=== PATIENT | male | born 1990 | race Caucasian/White ===

== ENCOUNTER 2016-05-22 04:18 | Emergency (ER) ==
[2016-05-22 04:53] VITALS: BP 105/53; TEMP 98; BMI 23.6
[2016-05-22] MEDS: SODIUM CHLORIDE 1,000 ML IV STA (05:33)
[2016-05-22] MEDS: ZOFRAN 4 MG/2 ML IVP STA ×2 (05:33→09:07)
[2016-05-22 05:34] LABS: BASOPHILS % (AUTO) 0.8 % (0.0-3.0); EOSINOPHILS % (AUTO) 1.5 % (0.0-7.0); HEMOGLOBIN 9.2 g/dl (14.0-18.0); IMMATURE GRANULOCYTE % (AUTO) 0.8 % (0.0-5.0); LYMPHOCYTES # (AUTO) 0.2 K/uL (0.60-3.4); MEAN CORPUSCULAR HEMOGLOBIN 31.1 pg (27.0-31.0); MEAN CORPUSCULAR HGB CONC 34.1 (31.8-35.4); MEAN CORPUSCULAR VOLUME 91.2 fl (80.0-94.0); MONOCYTES # (AUTO) 0.2 K/uL (0.4-2.0); MONOCYTES % (AUTO) 15.8 (0-10); NEUTROPHILS # (AUTO) 0.8 K/ul (2.0-6.9); NEUTROPHILS % (AUTO) 63.1; PLATELET COUNT 158 10^3/uL (140-440); RED BLOOD COUNT 2.96 10^6/ul (4.70-6.10)
[2016-05-22] MEDS: DILAUDID 1 MG/ML SYRINGE IVP STA ×2 (05:38→08:56)
[2016-05-22 05:42] LABS: WHITE BLOOD COUNT 1.33 K/ul (4.2-10.2)
[2016-05-22 05:53] LABS: MONO INTERNAL QC INTERNAL QC VALID
[2016-05-22 05:54] LABS: ALBUMIN 3.1 g/dL (3.4-5.0); ALBUMIN/GLOBULIN RATIO 1.24; ANION GAP 7.4; BILIRUBIN,TOTAL 0.39 mg/dL (0.00-1.20); BUN/CREATININE RATIO 11.76; CALCIUM 7.8 mg/dL (8.2-10.2); CREATININE 0.68 mg/dL (0.60-1.10); POTASSIUM 3.4 mmol/L (3.5-5.1); TOTAL PROTEIN 5.6 g/dL (6.4-8.2)
[2016-05-22 06:01] LABS: CREATINE KINASE 33 U/L
[2016-05-22 06:07] LABS: ERYTHROCYTE SEDIMENTATION RATE 9 mm/hr (0-15); ESR INTERNAL QC INTERNAL QC VALID
--- NOTE | 2016-05-22 06:49 | ED.PDOC ---
General Stated Complaint: im hurting--i was at [place] a few weeks ago Time Seen by Physician: 04:30 Mode of Arrival: Wheelchair Information Source: Patient, Family Exam Limitations: No limitations Nursing and Triage Documentation Reviewed and Agree: Yes <NADER KRAFT - Last Filed: 05/22/16 06:50> <BJ HARRINGTON JR - Last Filed: 05/22/16 20:06> ED Provider: Dr. BJ HARRINGTON JR (NADER KRAFT) (BJ HARRINGTON JR) Chief Complaint: Abdominal Pain GI Complaint Exam - Abdominal Pain Complaint/Exam Onset: Gradual Duration: several days Symptoms Are: Still present Timing: Constant Initial Severity: Mild Current Severity: Moderate Location of Pain: Diffuse Radiates To: Reports: Back Character: Reports: Dull, Aching, Cramping Aggravating: Reports: None Alleviating: Reports: None Associated Signs and Symptoms: Reports: Back pain, Decreased appetite, Nausea, Diarrhea. Denies: Diaphoresis, Fever, Cough, Chest pain, Dizziness, Constipation, Blood in stool, Dysuria, Urinary frequency, Decreased urine output , Discharge, Vomiting, Decreased activity Related History: Reports: Similar episode (was in [place] a few weeks ago) Abdominal Findings: Present: None Differential Diagnoses: Bowel Obstruction, Constipation, Pancreatitis, UTI Quality Indicator For Non-Traumatic Chest Pain/Syncope: EKG Performed <NADER KRAFT - Last Filed: 05/22/16 06:50> Review of Systems - Review Of Systems Constitutional: Reports: No symptoms Eyes: Reports: No symptoms Ears, Nose, Mouth, Throat: Reports: No symptoms Respiratory: Reports: No symptoms Cardiac: Reports: No symptoms GI: Reports: Abdominal pain, Nausea, Poor appetite, Poor fluid intake, Vomiting : Reports: No symptoms Musculoskeletal: Reports: No symptoms Skin: Reports: No symptoms Neurological: Reports: No symptoms Endocrine: Reports: No symptoms Hematologic/Lymphatic: Reports: No symptoms All Other Systems: Reviewed and Negative <NADER KRAFT - Last Filed: 05/22/16 06:50> Past Medical History - Past Medical History Endocrine: Reports: Unknown Cardiovascular: Reports: Unknown Respiratory: Reports: Unknown Hematological: Reports: Unknown Gastrointestinal: Reports: Unknown Genitourinary: Reports: Unknown Neuro/Psych: Reports: Unknown Musculoskeletal: Reports: Unknown Cancer: Reports: Unknown - Surgical History General Surgical History: Reports: Unknown - Family History Family History: Reports: Unknown - Social History Smoking Status: Never smoker Hx Substance Use: No Alcohol Screening: None Lives: With family - Immunizations Tetanus Shot up to Date: Yes <NADER KRAFT - Last Filed: 05/22/16 06:50> Physical Exam - Physical Exam Appearance: Thin Pain Distress: Moderate Eyes: PRIYANKA, EOMI, Conjunctiva clear ENT: Ears normal, Nose normal, Oropharynx normal Neck: Supple Respiratory: Airway patent Cardiovascular: RRR GI/: Soft, Nontender, No masses, Bowel sounds normal, No Organomegaly Musculoskeletal: Normal strength, ROM intact, No edema, No calf tenderness Skin: Warm, Dry, Normal color Neurological: Sensation intact, Motor intact, Reflexes intact, Cranial nerves intact, Alert, Oriented Psychiatric: Affect appropriate, Mood appropriate <NADER KRAFT - Last Filed: 05/22/16 06:50> Re-Evaluation - Re-Evaluation Time of Re-Evaluation: 07:22 (records from [facility] obtained called [facility]- offered [facility] records- will send inpatietn notes no dc sum [id number] [phone]) Status: Unchanged Appearance: Other Lungs: Other - Re-Evaluation Time of Re-Evaluation: 08:30 (DISC WITH DR SULLIVAN AT [facility] ACCEPT IF AGREES TO DECOMPRESSION RECC EMS DO NOT RECC OPIATES) Status: Unchanged Vital Signs Stable: Yes Appearance: Other Skin: Other (PALE) Neuro: Alert and Oriented X3 (FORCED PUSH OF SPEECH MAKES HIM DIFFICULT TO UNDERSTAND AND NEEDS FREQUENT REDIRECTION) CV: RRR Additional Comments: ABD SLIGHTLY DISTENDED AND TENDER FEW BS <BJ HARRINGTON JR - Last Filed: 05/22/16 20:06> Physician Notification - Case Discussed Physician Notified: dr harrington Time of Notification: 07:00 <NADER KRAFT - Last Filed: 05/22/16 06:50> - Case Discussed Physician Notified: DISC WITH DR MURILLO Time of Notification: 06:50 (SEEMS TO HAVE BEEN DISCHARGED AMA WORSHIP CT OBTAINED ) <BJ HARRINGTON JR - Last Filed: 05/22/16 20:06> Critical Care Note - Critical Care Note Total Time (mins): 20 <BJ HARRINGTON JR - Last Filed: 05/22/16 20:06> Course - Course Hematology/Chemistry: 05/22/16 05:25 05/22/16 05:25 <NADER KRAFT - Last Filed: 05/22/16 06:50> - Course Hematology/Chemistry: 05/22/16 05:25 05/22/16 05:25 <BJ HARRINGTON JR - Last Filed: 05/22/16 20:06> - Course Orders, Labs, Meds: Lab Review 05/22/16 05:25 WBC 1.33 L* RBC 2.96 L Hgb 9.2 L Hct 27.0 L MCV 91.2 MCH 31.1 H MCHC 34.1 RDW Coeff of Clare 13.5 Plt Count 158 Immature Gran % (Auto) 0.8 Neut % (Auto) 63.1 Lymph % (Auto) 18.0 Wilkin % (Auto) 15.8 H Eos % (Auto) 1.5 Baso % (Auto) 0.8 Immature Gran # (Auto) 0.0 Neut # 0.8 L Lymph # 0.2 L Wilkin # 0.2 L Eos # 0.0 Baso # 0.0 ESR 9 D-Dimer 0.38 Sodium 140 Potassium 3.4 L Chloride 103 Carbon Dioxide 33 H Anion Gap 7.4 BUN 8 Creatinine 0.68 Estimated GFR (MDRD) 139.00 BUN/Creatinine Ratio 11.76 Glucose 118 H Calcium 7.8 L Total Bilirubin 0.39 AST 97 H ALT 90 H Alkaline Phosphatase 117 Total Creatine Kinase 33 Troponin I < 0.0100 Total Protein 5.6 L Albumin 3.1 L Globulin 2.5 Albumin/Globulin Ratio 1.24 Amylase 123 H Lipase 19 Infectious Wilkin Assay Negative Orders Category Date Time Status EKG-(ED ONLY) Stat CARDIO 05/22/16 05:16 Completed NPO REMINDER: IMAGING ONCE CARE 05/22/16 05:17 Completed ED IV/MEDIPORT/POWERPORT .ONCE EMERGENCY 05/22/16 05:16 Active AMYLASE Stat LAB 05/22/16 05:25 Completed CBC W/ AUTO DIFF Stat LAB 05/22/16 05:25 Completed COMPREHENSIVE METABOLIC PANEL Stat LAB 05/22/16 05:25 Completed CREATINE KINASE Stat LAB 05/22/16 05:25 Completed D-DIMER Stat LAB 05/22/16 05:25 Completed ESR Stat LAB 05/22/16 05:25 Completed LIPASE Stat LAB 05/22/16 05:25 Completed MONONUCLOSIS SCREEN Stat LAB 05/22/16 05:25 Completed TROPONIN I Stat LAB 05/22/16 05:25 Completed 0.9 % Sodium Chloride [Saline Flush] MEDS 05/22/16 05:16 Discontinued 1 syr IVF PRN PRN Hydromorphone HCl [Dilaudid 1 mg/ml Syringe] MEDS 05/22/16 05:17 Discontinued 0.5 mg IVP ONCE STA Hydromorphone HCl [Dilaudid 1 mg/ml Syringe] MEDS 05/22/16 08:30 Discontinued 0.5 mg IVP ONCE STA Ondansetron HCl/Pf [Zofran 4 mg/2 ml] MEDS 05/22/16 05:18 Discontinued 4 mg IVP ONCE STA Ondansetron HCl/Pf [Zofran 4 mg/2 ml] MEDS 05/22/16 08:58 Discontinued 4 mg IVP ONCE STA Sodium Chloride 0.9% [Sodium Chloride] 1,000 ml MEDS 05/22/16 05:16 Discontinued IV 100 mls/hr CT ABDOMEN/PELVIS W CONTRAST Stat RADS 05/22/16 06:[address] CHEST W/O CONTRAST Stat RADS 05/22/16 05:16 Completed Medications Discontinued Medications Generic Name Dose Route Start Last Admin Trade Name Freq PRN Reason Stop Dose Admin Hydromorphone HCl 0.5 mg 05/22/16 05:17 05/22/16 05:38 Dilaudid 1 Mg/Ml Syringe IVP 05/22/16 05:18 0.5 mg ONCE STA Administration Hydromorphone HCl 0.5 mg 05/22/16 08:30 05/22/16 08:56 Dilaudid 1 Mg/Ml Syringe IVP 05/22/16 08:31 0.5 mg ONCE STA Administration Sodium Chloride 1,000 mls @ 100 mls/hr 05/22/16 05:16 05/22/16 05:33 Sodium Chloride IV 05/22/16 15:15 100 mls/hr .Q10H STA Administration Ondansetron HCl 4 mg 05/22/16 05:18 05/22/16 05:33 Zofran 4 Mg/2 Ml IVP 05/22/16 05:19 4 mg ONCE STA Administration Ondansetron HCl 4 mg 05/22/16 08:58 05/22/16 09:07 Zofran 4 Mg/2 Ml IVP 05/22/16 08:59 4 mg ONCE STA Administration Sodium Chloride 1 syr 05/22/16 05:16 05/22/16 05:33 Saline Flush IVF 1 syr PRN PRN Administration To flush IV (NDAER KRAFT) (BJ HARRINGTON JR) Vital Signs: Temp Pulse Resp BP Pulse Ox 05/22/16 04:27 98 F 80 20 105/53 L 99 (NADER KRAFT) (BJ HARRINGTON JR) Departure <NADER KRAFT - Last Filed: 05/22/16 06:50> - Departure Time of Disposition: 08:38 Pt referred to PMD for follow-up: No ([facility]) <BJ HARRINGTON JR - Last Filed: 05/22/16 20:06> - Departure Disposition: TSF SHORT-TRM HOSP Discharge Problem: Pseudo-obstruction of intestine Instructions: Bowel Obstruction (ED) Condition: Stable Allergies/Adverse Reactions: Allergies clarithromycin [From Biaxin] Adverse Reaction (Verified 05/22/16 04:21) erythromycin base Adverse Reaction (Verified 05/22/16 04:21) heparin Adverse Reaction (Verified 05/22/16 04:22) ketorolac [From Toradol] Adverse Reaction (Verified 05/22/16 04:20) Abdominal Pain Penicillins Adverse Reaction (Verified 05/22/16 04:21) prednisone Adverse Reaction (Verified 05/22/16 04:22) warfarin [From Coumadin] Adverse Reaction (Verified 05/22/16 04:22) Home Medications: Ambulatory Orders Acetaminophen with Codeine [Tylenol #3 Tab] 1 tab PO DIRECTED 05/22/16 Cholecalciferol (Vitamin D3) [Vitamin D] 5,000 unit PO DAILY 05/22/16 Multivitamin 1 cap PO DAILY 05/22/16 Ondansetron HCl [Zofran Tab] 4 mg PO Q4H PRN 05/22/16 Pantoprazole Sodium [Protonix] 40 mg PO QDAC 05/22/16
--- NOTE | 2016-05-22 07:07 | CT ---
EXAM: The CT chest without intravenous contrast 05/22/2016. Sagittal and coronal reformatted image s obtained HISTORY: Chest pain COMPARISON: None. FINDINGS: The heart size appears within normal limits Mild right basilar atelectasis. Elevation of the left diaphragm. There is more prominent atelectasis which involves the lingula and left lower lobe. There is no pulmonary consolidation. No pleural effusion or pneumothorax. Limited views of the upper abdomen show diffusely fluid-filled and distended small bowel and colon. Innumerable air fluid levels. The appearance is suggestive of ileus. Further imaging of the abdom en and pelvis may be of benefit. There is depression within the end plates of multiple thoracic vertebral bodies. Compression fractu re is most severe at T10. No prior study for comparison. IMPRESSION: 1. Multifocal bibasilar atelectasis, left greater than right. 2. Elevation of the left diaphragm. 3. Diffusely fluid-filled small bowel and colon within the upper abdomen. Innumerable air fluid le vels suggestive of ileus. Further evaluation of the abdomen and pelvis may be of benefit. 4. Diffuse osseous demineralization. Multilevel partial compression fracture within the thoracic s pine. This is most severe at T10.
--- NOTE | 2016-05-22 07:23 | CT ---
EXAM: CT abdomen pelvis with intravenous contrast 05/22/2016. Sagittal and coronal reformatted ramiro ges obtained HISTORY: Abdominal pain COMPARISON: None. FINDINGS: The liver and gallbladder show no acute abnormality. No hydronephrosis. Contrast excret ion from both kidneys. The spleen shows no acute process. The pancreas shows no gross abnormality. There is severe fluid distension which extends throughout small bowel and colon. There is no defini tive transition point identified. The appearance is suggestive of a severe diffuse ileus. Distal o bstructive process cannot totally be excluded. Nonspecific decompressed loops of bowel are present within the left abdomen. There is fluid distension of bowel beyond this point. Fluid distended karey l extends through the distal rectum. Contrast layers normally within the urinary bladder. The osseous structures appear demineralized. Multiple partial compression fractures within the lumb ar spine. This is most severe at L4. No prior study for comparison. IMPRESSION: 1. Severe fluid distension extends throughout small bowel and colon. Innumerable air fluid levels. This likely represents a severe diffuse ileus. Distal obstructive process cannot totally be exclud ed however is considered less likely. 2. Diffuse demineralization. Multiple partial compression fractures. No prior study for comparis on.
== END 2016-05-22 10:40 | disposition short-term general hospital (02) ==
LOC: ED 04:18
DX: K56.69 Other intestinal obstruction (principal)
CPT/HCPCS: 36415; 80053; 82150; 82550; 83690; 84484; 85025; 85379; 85651; 86308; 93005; 93010; 96361; 96374; 96375; 96376; 99285